=== PATIENT | female | born 1995 | race American Indian/Alaskan Native ===

== ENCOUNTER 2021-01-03 09:59 | Emergency (ER) | payer SELFPAY | END 2021-01-03 10:04 | disposition left against medical advice (07) | LOC: ED 09:59 | DX: N39.0 Urinary tract infection, site not specified (principal); Z53.21 Procedure and treatment not carried out due to patient leaving prior to being seen by health care provider ==

== ENCOUNTER 2021-04-16 16:26 | Emergency (ER) | payer SELFPAY ==
[2021-04-16] MEDS ORDERED: diphenhydrAMINE 50 MG/ML VIAL IV ONE (18:29)
[2021-04-16] MEDS ORDERED: FAMOTIDINE 20 MG/2 ML INJ IV ONE (18:29)
[2021-04-16] MEDS ORDERED: SODIUM CHLORIDE 0.9% 1000 ML 1,000 ML IV ONE (18:29)
[2021-04-16] MEDS ORDERED: methylPREDNISolone Sod Succinate 125 MG/2 ML INJ IV ONE (18:29)
--- NOTE | 2021-04-16 18:32 | Emergency Department Report ---
ED Rash [facility] - HPI Chief Complaint: Skin Rash Stated Complaint: ALLERGIC REACTION Time Seen by Provider: 04/16/21 18:28 Duration: 6 days Location: Neck, Chest, Other (Face) Suspected Cause: Other (Hljk-ule-uzeszse hyaluronic acid cream) Rash Symptoms: Yes Itching, No Facial Swelling, No Tongue/Oral Swelling, No Breathing Difficulties, No Choking Sensation, No Wheezing/Dyspnea, No Peeling, No Blistering, No Fever, No Lightheaded, No Malaise, No Myalgias Severity: severe Other History: 25-year-old -[place] female presents to the emergency room reporting that she has broken out in a rash all over her face neck chest back and is spreading all over. Patient states that this has been going on for 6 days. She noticed that after using some hair dye and some whjh-afn-gbnpsqe hidrotic acid to her face. Patient denies any new foods no new medications no detergent no pets no perfumes or lotions. She denies any shortness of breath chest pain or difficulty swallowing. ED Review of Systems ROS: Stated complaint: ALLERGIC REACTION Other details as noted in HPI ED Past Medical Hx - Medications Home Medications: Home Medications Medication Instructions Recorded Confirmed Last Taken Type Famotidine [Pepcid] 20 mg PO BID #10 tablet 04/16/21 Unknown Rx Prednisone [predniSONE 10 mg 10 mg PO .TAPER #1 tab.ds.pk 04/16/21 Unknown Rx (6-Day Pack, 21 Tabs)] hydrOXYzine HCL [Atarax] 25 mg PO Q6HR PRN #20 tablet 04/16/21 Unknown Rx Rash Exam - Exam General: Vital signs noted. No distress. Alert and acting appropriately. HEENT: No Periorbital Edema, No Conjuctival Injection, No Chemosis, No Perioral Edema, No Tongue Edema, No Uvular Edema, No Compromised Airway, No Drooling Lungs: Yes Good Air Exchange (Normal Breath Sounds), No Wheezes, No Ronchi, No Stridor, No Cough, No Labored Respirations, No Retractions, No Use of Accessory Muscles, No Other Abnormal Lung Sounds Heart: Yes Regular, No Murmur Skin: Yes Urticarial Rash Other: Positive: Abdomen Normal, Neurologic Normal, Musculoskeletal Normal ED Course Vital Signs 04/16/21 16:29 Temperature 98.8 F Pulse Rate 86 Respiratory 18 Rate Blood Pressure 104/77 [Left] O2 Sat by Pulse 99 Oximetry ED Medical Decision Making - Medical Decision Making 25-year-old -[place] female presents to the emergency room reporting that she has broken out in a rash all over her face neck chest back and is spreading all over. Patient states that this has been going on for 6 days. She noticed that after using some hair dye and some vqgx-pue-shgpedc hidrotic acid to her face. Patient denies any new foods no new medications no detergent no pets no perfumes or lotions. She denies any shortness of breath chest pain or difficulty swallowing. INT, Benadryl normal saline Pepcid and Solu-Medrol IV. Patient reports she feels better after having medication. Patient be sent home on Pepcid p.o., Atarax p.o. and prednisone p.o. discussed with patient to follow-up with her primary care provider for allergy testing. Critical care attestation.: If time is entered above; I have spent that time in minutes in the direct care of this critically ill patient, excluding procedure time. ED Disposition Clinical Impression: Allergic reaction Disposition: 01 HOME / SELF CARE / HOMELESS Is pt being admited?: No Does the pt Need Aspirin: No Condition: Stable Instructions: Allergies, Adult, Arxh-gs-[id number] Additional Instructions: Please take medication as needed. You can take Claritin if the Atarax makes you too sleepy. Prescriptions: hydrOXYzine HCL [Atarax] 25 mg PO Q6HR PRN #20 tablet PRN Reason: Itching Famotidine [Pepcid] 20 mg PO BID #10 tablet Prednisone [predniSONE 10 mg (6-Day Pack, 21 Tabs)] 10 mg PO .TAPER #1 tab.ds.pk Referrals: PRIMARY CARE, [Primary Care Provider] - 3-5 Days Forms: Work/School Release Form(ED) Time of Disposition: 19:44
[2021-04-16 19:17] VITALS: BP 122/72
== END 2021-04-16 19:58 | disposition home or self-care (01) ==
LOC: ED 16:26
DX: T78.40XA Allergy, unspecified, initial encounter (principal); X58.XXXA Exposure to other specified factors, initial encounter
CPT/HCPCS: 96361; 96374; 96375; 99282; J1200; J2930; J3490; J7030; Q0162